=== PATIENT | female | born 1990 | race Caucasian/White ===

== ENCOUNTER → 2016-06-01 | Outpatient (CLI) | payer OTHER ==
[~2016-06-01] MED LIST: MISCCAP80 PO; MULT-506 PO; OXYC-57 PO; PRENTAB26 PO
[2016-06-01 11:11] LABS: URINE APPEARANCE CLOUDY (CLEAR); URINE BILIRUBIN NEG (NEG); URINE COLOR YELLOW; URINE EPITHELIAL CELL AUTO >30 /lpf (0-5); URINE NITRITE NEG (NEG); URINE PH 8.5 (4.5-7.5); URINE SPECIFIC GRAVITY 1.013 (1.000-1.030); UROBILINOGEN NEG (NEG)
[2016-06-01 11:17] LABS: MANUAL MICROSCOPIC REQUIRED? NO; REVIEW REQ? NO
== END | disposition home or self-care (01) ==
LOC: C.LABSPEC 10:51 → MERGE 10:51
PROVIDERS: ATTEND Obstetrics & Gynecology
DX: O09.299 Supervision of pregnancy with other poor reproductive or obstetric history, unspecified trimester (principal); Z3A.00 Weeks of gestation of pregnancy not specified

== ENCOUNTER → 2016-06-03 | Outpatient (CLI) | payer OTHER ==
[2016-06-03 14:41] LABS: BASO % 0.4 %; BASO ABS # 0.04 K/uL (0-0.2); COMPLETE YES; EOS % 0.5 %; HEMATOCRIT 37.8 % (37-47); IG% 0.3 %; LYMPH % 24.6 %; LYMPH ABS # 2.37 K/uL (1.2-3.4); MEAN CELL VOLUME 87.1 fL (80-100); MEAN CORPUSCULAR HEMOGLOBIN 30.2 pg (25-34); MEAN CORPUSCULAR HGB CONC 34.7 g/dl (32-36); MEAN PLATELET VOLUME 10.7 fL (7.4-10.4); MONO % 5.1 %; NEUT % 69.1 %; PLATELET COUNT 229 K/uL (130-400); RED BLOOD COUNT 4.34 M/uL (4.2-5.4); WHITE BLOOD COUNT 9.65 K/uL (4.8-10.8)
[2016-06-06 01:55] LABS: CHLAMYDIA TRACH RNA*** NOT DETECTED (NOT DETECTED); GC (NEIS GONORRHOEAE)RNA** NOT DETECTED (NOT DETECTED)
== END | disposition home or self-care (01) ==
LOC: MERGE 12:41 → C.LAB1850 12:41
PROVIDERS: ATTEND Obstetrics & Gynecology
DX: O09.291 Supervision of pregnancy with other poor reproductive or obstetric history, first trimester (principal)

== ENCOUNTER → 2016-07-29 | Outpatient (CLI) | payer OTHER ==
[2016-07-29 14:08] LABS: GTGD 50 Grams
== END | disposition home or self-care (01) ==
LOC: MERGE 10:40 → C.LAB1850 10:40
PROVIDERS: ATTEND Obstetrics & Gynecology
DX: O09.292 Supervision of pregnancy with other poor reproductive or obstetric history, second trimester (principal)

== ENCOUNTER → 2016-10-19 | Outpatient (CLI) | payer OTHER ==
[2016-10-19 12:29] LABS: HEMATOCRIT 35.9 % (37-47)
[2016-10-19 13:37] LABS: GTGD 50 Grams
== END | disposition home or self-care (01) ==
LOC: C.LAB1850 10:26
PROVIDERS: ATTEND Obstetrics & Gynecology
DX: O09.293 Supervision of pregnancy with other poor reproductive or obstetric history, third trimester (principal); Z3A.00 Weeks of gestation of pregnancy not specified

== ENCOUNTER → 2016-10-19 | Outpatient (CLI) | payer OTHER ==
[2016-10-19 14:26] LABS: URINE APPEARANCE CLEAR (CLEAR); URINE BILIRUBIN NEG (NEG); URINE COLOR YELLOW; URINE EPITHELIAL CELL AUTO >30 /lpf (0-5); URINE NITRITE NEG (NEG); URINE SPECIFIC GRAVITY 1.006 (1.000-1.030); UROBILINOGEN NEG (NEG)
[2016-10-19 14:29] LABS: MANUAL MICROSCOPIC REQUIRED? NO; REVIEW REQ? NO
== END | disposition home or self-care (01) ==
LOC: C.LABSPEC 13:22
PROVIDERS: ATTEND Obstetrics & Gynecology
DX: O09.293 Supervision of pregnancy with other poor reproductive or obstetric history, third trimester (principal); Z3A.00 Weeks of gestation of pregnancy not specified

== ENCOUNTER 2016-12-24 13:10 | Inpatient (IN) | payer OTHER ==
[~2016-12-24] VITALS: Ht 157.5 cm; Wt 75.5 kg
[~2016-12-24 13:10] MED LIST changes: -OXYC-57 PO
[2016-12-24 13:31] VITALS: Ht 157.5 cm; Wt 75.5 kg
[2016-12-24 14:22] LABS: BASO % 0.3 %; BASO ABS # 0.03 K/uL (0-0.2); EOS % 0.8 %; HEMATOCRIT 36.6 % (37-47); IG% 0.3 %; LYMPH % 24.9 %; LYMPH ABS # 2.93 K/uL (1.2-3.4); MEAN PLATELET VOLUME 11.5 fL (7.4-10.4); MONO % 5.5 %; NEUT % 68.2 %; PLATELET COUNT 187 K/uL (130-400); RED BLOOD COUNT 4.16 M/uL (4.2-5.4); WHITE BLOOD COUNT 11.78 K/uL (4.8-10.8)
[2016-12-24 14:23] LABS: URINE APPEARANCE CLEAR (CLEAR); URINE BILIRUBIN NEG (NEG); URINE COLOR YELLOW; URINE EPITHELIAL CELL AUTO >30 /lpf (0-5); URINE NITRITE NEG (NEG); URINE SPECIFIC GRAVITY 1.004 (1.000-1.030); UROBILINOGEN NEG (NEG)
[2016-12-24 14:24] LABS: MANUAL MICROSCOPIC REQUIRED? NO; REVIEW REQ? NO; SULFASALICYLIC ACID POS (NEG)
[2016-12-24 14:28] LABS: INR 0.9 (0.9-1.1); PROTHROMBIN TIME (PATIENT) 9.9 SECONDS (9.0-12.0)
[2016-12-24 14:43] LABS: ALKALINE PHOSPHATASE 99 U/L (45-117); ALT/SGPT 17 U/L (12-78); AST/SGOT 16 U/L (15-37); CREATININE 0.82 mg/dl (0.60-1.20); URIC ACID 6.3 mg/dl (2.6-7.2)
[2016-12-24 14:54] LABS: COMPLETE YES; MEAN CORPUSCULAR HGB CONC 35.2 g/dl (32-36)
[2016-12-24] MEDS ORDERED: LACTATED RINGER'S 1000ML 500 ML IV PRN ×2 (15:20→18:44)
[2016-12-24] MEDS ORDERED: LACTATED RINGER'S 1000ML 1,000 ML IV PRN (15:20)
[2016-12-24] MEDS: ACETAMINOPHEN 500 MG TAB PO PRN (15:39)
[2016-12-24] MEDS ORDERED: MAGNESIUM SULFATE 4GM / WTR 100ML IV ONE (15:45)
[2016-12-24] MEDS ORDERED: MAGNESIUM SULFATE / WTR 1,000 ML IV ONE (16:00)
[2016-12-24] MEDS ORDERED: LACTATED RINGER'S 1000ML 1,000 ML IV SCH ×2 (16:00→17:02)
[2016-12-24 16:13] LABS: CREATININE, URINE < 13.0 mg/dl; URINE TOTAL PROTEIN 36.6 mg/dl (0-11.9)
[2016-12-24] MEDS ORDERED: CITRIC ACID/SODIUM CITRATE 15 ML UDC ONE (17:06)
[2016-12-24] MEDS ORDERED: CITRIC ACID/SODIUM CITRATE 15 ML UDC PO ONE (17:15)
[2016-12-24] MEDS ORDERED: MoRPHine SULFATE PF 1 MG/ML 10 ML AMP/VIAL ONE (17:30)
[2016-12-24] MEDS ORDERED: CEFAZOLIN IV 2,000 MG in DEXTROSE 5% 50ML 50 ML IV ONE (17:30)
[2016-12-24] MEDS ORDERED: OXYTOCIN INJ 10 UNITS/ML VIAL ONE (18:10)
[2016-12-24] MEDS ORDERED: EpHEDrine SULFATE 50MG/5ML SYR ONE (18:11)
[2016-12-24] MEDS ORDERED: PHENYLEPHRINE 100MCG/ML 5ML SYR ONE (18:11)
--- NOTE | 2016-12-24 18:23 | Medical Student: [facility] ---
Immediate Operative Summary Operative Date Dec 24, 2016. Pre-Operative Diagnosis placental abruption Post-Operative Diagnosis same Procedure(s) Performed primary low transverse section Surgeon Dr. Genaro Calvin Business Strategist Surgeon(s) Dr. Norma Huggins, Dr. Jian Colmenares Estimated Blood Loss 800cc Findings viable male infant was born at 1756 with scores of 7 and 9. Normal appearing uterus, fallopian tubes, and ovaries Specimens placenta cord blood Anesthesia spinal Complication(s) None Disposition L&D
[2016-12-24] MEDS ORDERED: OXYTOCIN INJ 20 UNITS in LACTATED RINGER'S 1000ML 1,000 ML IV SCH (18:24)
[2016-12-24] MEDS ORDERED: LANOLIN OINT EXT PRN ×2 (18:30)
[2016-12-24] MEDS ORDERED: DIPHTHERIA/TETANUS/PERTUSSIS 0.5 ML SYR/VIAL IM. ONE (18:30)
[2016-12-24] MEDS ORDERED: HYDROCORTISONE ACETATE 25 MG SUPP PR PRN (18:30)
[2016-12-24] MEDS ORDERED: DiphenhydrAMINE HCL 50 MG/ML VIAL IV PRN ×3 (18:30→18:45)
[2016-12-24] MEDS ORDERED: MAGNESIUM SULFATE / WTR 1,000 ML IV SCH (18:30)
[2016-12-24] MEDS ORDERED: ONDANSETRON INJ 2 MG/ML 2 ML VIAL IV PRN ×3 (18:30→18:45)
[2016-12-24] MEDS ORDERED: OXYCODONE/ACETAMINOPHEN 5-325 TAB PO PRN ×2 (18:30)
[2016-12-24] MEDS ORDERED: KETOROLAC TROMETHAMINE 30 MG/ML VIAL IV. PRN ×2 (18:30→18:45)
[2016-12-24] MEDS ORDERED: SUPERCREAM 0.870 % 15GM JAR EXT PRN (18:30)
[2016-12-24] MEDS ORDERED: BENZOCAINE 20% AER SPR 82.5 GM CAN EXT PRN (18:30)
--- NOTE | 2016-12-24 18:35 | [facility] Post Operative Brief Note ---
Immediate Operative Summary Operative Date Dec 24, 2016. Pre-Operative Diagnosis 1) Severe Preeclampsia; 2) Placental Abruption Post-Operative Diagnosis Same Procedure(s) Performed Primary Low Transverse Caesarean Section; Delivery of a live female child at [address] Calvin Switchboard Operator Receptionist Surgeon(s) Dr Huggins Estimated Blood Loss 800 cc Findings viable female , Apgars 7/9; clear fluid, small clot on placenta, gasses pending, nml appearing tubes and ovaries Fluids (cc crystalloids) 1000 Specimens placenta-exam cord blood arterial and venous gases Drains Campos to gravity Anesthesia Spinal Complication(s) None Disposition L&D
[2016-12-24] MEDS ORDERED: NALOXONE HCL INJ 1 MG in SODIUM CHLORIDE 0.9% 1000ML 1,000 ML IV PRN (18:44)
[2016-12-24] MEDS ORDERED: SODIUM CHLORIDE 0.9% 1000ML 1,000 ML IV PRN (18:44)
[2016-12-24] MEDS ORDERED: NALOXONE HCL INJ 0.08 MG in SYRINGE 1.8 ML IV PRN (18:44)
[2016-12-24] MEDS ORDERED: NO NARCOTICS OR SEDATIVES SCH (18:45)
[2016-12-24] MEDS ORDERED: EpHEDrine SULFATE INJ 50 MG/ML AMP IV PRN ×2 (18:45)
[2016-12-24] MEDS ORDERED: MEPERIDINE HCL 25 MG/ML CARP IV PRN ×2 (18:45)
[2016-12-24] MEDS ORDERED: NALBUPHINE HCL INJ 10 MG/ML AMP IV PRN (18:45)
[2016-12-24] MEDS ORDERED: ATROPINE SULFATE 0.1 MG/ML 5ML SYR IV PRN (18:45)
[2016-12-24] MEDS ORDERED: LABETALOL HCL IV 5 MG/ML 20ML IV PRN (18:45)
[2016-12-24] MEDS ORDERED: MoRPHine SULFATE 2 MG/ML CARP IV PRN (18:45)
[2016-12-24] MEDS ORDERED: HYDROmorphone INJ 1 MG/ML SYR IV PRN (18:45)
[2016-12-24] MEDS ORDERED: MoRPHine SULFATE PF 1 MG/ML 10 ML AMP/VIAL EPI PRN (18:45)
[2016-12-24] MEDS ORDERED: FENTANYL CITRATE INJ 50 MCG/1 ML 2 ML VIAL IV PRN (18:45)
[2016-12-24] MEDS ORDERED: NALOXONE HCL 0.4 MG/1 ML VIAL/CARP IV PRN (18:45)
[2016-12-24] MEDS ORDERED: OXYTOCIN 30 UNITS/500ML NSS IV PRN (19:00)
[2016-12-24] MEDS ORDERED: CARBOPROST TROMETHAMINE 250 MCG/ML AMP ONE (19:08)
--- NOTE | 2016-12-24 19:26 | Anesthesiology Progress Note ---
Anesthesia Post Op Note Date & Time Dec 24, 2016 at 19:26 Vital Signs Pain Intensity: 9.0 Notes Mental Status: alert / awake / arousable, participated in evaluation Pt Amnestic to Procedure: Yes Nausea / Vomiting: adequately controlled Pain: adequately controlled Airway Patency, RR, SpO2: stable & adequate BP & HR: stable & adequate Hydration State: stable & adequate Neuraxial Anesthesia: was administered, sensory block is resolving Anesthetic Complications: no major complications apparent
--- NOTE | 2016-12-24 19:43 | Medical Student: [facility] ---
Med Student History & Physical Date of Service Dec 24, 2016. Chief Complaint High Blood Pressure Evaluation History of Present Illness Source: patient Pt is a 26 yo F with BELA of 01/07/2017 by LMP, 38 weeks of GA, presents for elevated blood pressure evaluation. Pt was in the office earlier for regular pre-millie checkup and recorded a BP of 160/100 and 140/90. Trace protein was found in urine. Pt. had also been complaining of headaches that began around 4am which woke her up and was worst when she was in the office for the check-up. Prior to today, there has not been elevated BP during the . course has been followed by Cielo Swartz and uncomplicated. Was feeling regular contractions on arrival and the headaches get worse with the contractions. Denies loss of fluid or vaginal bleeding. Reports good movements. 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 Smoking Status: Never Smoker Alcohol Use: none Drug Use: none Marital Status: Occupational Status: employed Allergies Coded Allergies: Gluten (Unverified Allergy, Unknown, GI ISSUES, 07/30/16) Home Medications Multivit/Min/Iron/Fol Ac/Pren ( Vitamin), 1 TAB PO DAILY Multivitamin (Multivitamin), 1 TAB PO DAILY Probiotic Product (Probiotic), 1 CAP PO DAILY Review of Systems Constitutional: No fever Respiratory: No cough, No shortness of breath Cardiovascular: No chest pain Abdomen: + pain (lower abdomen feels a little painful, reports as pressure from fetus pushing down ) Musculoskeletal: No calf pain Physical Exam General Appearance: WD/WN, + moderate distress Respiratory/Chest: chest non-tender, lungs clear Cardiovascular: + bradycardia (46), + systolic murmur (tricuspid regurgitation) Abdomen / GI: soft Extremities: normal inspection, no calf tenderness, + pedal edema Skin: normal color, warm/dry Monitoring External Monitor: baseline HR 145, moderate variability, category 1 tracing Laboratory Results 12/24/16 14:03 Red Blood Count 4.16, Mean Corpuscular Volume 88.0, Mean Corpuscular Hemoglobin 31.0, Mean Corpuscular Hemoglobin Concent 35.2, Mean Platelet Volume 11.5, Neutrophils (%) (Auto) 68.2, Lymphocytes (%) (Auto) 24.9, Monocytes (%) (Auto) 5.5, Eosinophils (%) (Auto) 0.8, Basophils (%) (Auto) 0.3, Neutrophils # (Auto) 8.05, Lymphocytes # (Auto) 2.93, Monocytes # (Auto) 0.65, Eosinophils # (Auto) 0.09, Basophils # (Auto) 0.03 12/24/16 14:03 Test 12/24/16 14:03 12/24/16 14:07 White Blood Count 11.78 K/uL (4.8-10.8) Red Blood Count 4.16 M/uL (4.2-5.4) Hemoglobin 12.9 g/dL (12.0-16.0) Hematocrit 36.6 % (37-47) Mean Corpuscular Volume 88.0 fL (80-100) Mean Corpuscular Hemoglobin 31.0 pg (25-34) Mean Corpuscular Hemoglobin Concent 35.2 g/dl (32-36) Platelet Count 187 K/uL (130-400) Mean Platelet Volume 11.5 fL (7.4-10.4) Neutrophils (%) (Auto) 68.2 % Lymphocytes (%) (Auto) 24.9 % Monocytes (%) (Auto) 5.5 % Eosinophils (%) (Auto) 0.8 % Basophils (%) (Auto) 0.3 % Neutrophils # (Auto) 8.05 K/uL (1.4-6.5) Lymphocytes # (Auto) 2.93 K/uL (1.2-3.4) Monocytes # (Auto) 0.65 K/uL (0.11-0.59) Eosinophils # (Auto) 0.09 K/uL (0-0.5) Basophils # (Auto) 0.03 K/uL (0-0.2) RDW Standard Deviation 40.3 fL (36.4-46.3) RDW Coefficient of Variation 12.5 % (11.5-14.5) Immature Granulocyte % (Auto) 0.3 % Immature Granulocyte # (Auto) 0.03 K/uL (0.00-0.02) Prothrombin Time 9.9 SECONDS (9.0-12.0) Prothromb Time International Ratio 0.9 (0.9-1.1) Activated Partial Thromboplast Time 26.8 SECONDS (21.0-31.0) Partial Thromboplastin Ratio 1.0 Est Creatinine Clear Calc Drug Dose 98.9 ml/min Estimated GFR () 114.5 Estimated GFR (Non- 98.8 Uric Acid 6.3 mg/dl (2.6-7.2) Total Bilirubin 0.2 mg/dl (0.2-1) Direct Bilirubin < 0.1 mg/dl (0-0.2) Aspartate Amino Transf (AST/SGOT) 16 U/L (15-37) Alanine Aminotransferase (ALT/SGPT) 17 U/L (12-78) Alkaline Phosphatase 99 U/L (45-117) Total Protein 6.3 gm/dl (6.4-8.2) Albumin 2.6 gm/dl (3.4-5.0) Urine Color YELLOW Urine Appearance CLEAR (CLEAR) Urine pH 8.0 (4.5-7.5) Urine Specific [place] 1.004 (1.000-1.030) Urine Protein 1+ (NEG) Urine Glucose (UA) NEG (NEG) Urine Ketones NEG (NEG) Urine Occult Blood NEG (NEG) Urine Nitrite NEG (NEG) Urine Bilirubin NEG (NEG) Urine Urobilinogen NEG (NEG) Urine Leukocyte Esterase TRACE (NEG) Urine WBC (Auto) 1-5 /hpf (0-5) Urine RBC (Auto) 0-4 /hpf (0-4) Urine Hyaline Casts (Auto) 0 /lpf (0-5) Urine Epithelial Cells (Auto) >30 /lpf (0-5) Urine Bacteria (Auto) NEG (NEG) Assessment and Plan Pt is a 26 yo F at 38 weeks GA with elevated blood pressure. tracing category 1. - Admit to L & D - NPO except ice chips and clear liquid - Monitor mother and fetus - Administer magnesium sulfate - Induce labor with varghese catheter (proceeded with emergent section due to placental abruption)
[2016-12-25 06:05] LABS: HEMATOCRIT 29.1 % (37-47); MEAN CELL VOLUME 88.2 fL (80-100); MEAN CORPUSCULAR HEMOGLOBIN 30.3 pg (25-34); MEAN CORPUSCULAR HGB CONC 34.4 g/dl (32-36); MEAN PLATELET VOLUME 10.4 fL (7.4-10.4); PLATELET COUNT 136 K/uL (130-400); WHITE BLOOD COUNT 11.81 K/uL (4.8-10.8)
--- NOTE | 2016-12-25 06:48 | OB/GYN Progress Note ---
SKID MACHINE OPERATOR Progress Note Date of Service Dec 25, 2016. Subjective conversation w/ patient, conversation w/ family, physical exam, chart review, lab review Ambulation: limited ambulation (remained in bed overnight) Voiding: varghese catheter in place Passing Gas: No Diet Tolerance: Clear Liquids Lochia: Small (says a couple of small clots overnight) Feeding Type: Breast Feeding Pain: Denies, says "I'm feeling good" Review of Systems Constitutional: No fever, No chills Respiratory: No cough, No shortness of breath Cardiac: No chest pain Abdomen: No nausea, No vomiting, No diarrhea Objective Physical Exam General Appearance: WELL-APPEARING, WD/WN, NO APPARENT DISTRESS Respiratory/Chest: lungs clear, normal breath sounds Cardiovascular: regular rate, rhythm Abdomen: normal bowel sounds, non tender, soft Fundus: Firm, Tender (minimal, appropriate), Relation to Umbilicus (at umbilicus) Incision Description: Clean, Dry & Intact (bandage in place) Extremities: normal range of motion, non-tender, no pedal edema, no calf tenderness Laboratory Results Last 24 Hours Test 12/24/16 14:03 12/24/16 14:07 12/24/16 23:19 12/25/16 05:28 White Blood Count 11.78 K/uL 11.81 K/uL Red Blood Count 4.16 M/uL 3.30 M/uL Hemoglobin 12.9 g/dL 10.0 g/dL Hematocrit 36.6 % 29.1 % Mean Corpuscular Volume 88.0 fL 88.2 fL Mean Corpuscular Hemoglobin 31.0 pg 30.3 pg Mean Corpuscular Hemoglobin Concent 35.2 g/dl 34.4 g/dl Platelet Count 187 K/uL 136 K/uL Mean Platelet Volume 11.5 fL 10.4 fL Neutrophils (%) (Auto) 68.2 % Lymphocytes (%) (Auto) 24.9 % Monocytes (%) (Auto) 5.5 % Eosinophils (%) (Auto) 0.8 % Basophils (%) (Auto) 0.3 % Neutrophils # (Auto) 8.05 K/uL Lymphocytes # (Auto) 2.93 K/uL Monocytes # (Auto) 0.65 K/uL Eosinophils # (Auto) 0.09 K/uL Basophils # (Auto) 0.03 K/uL RDW Standard Deviation 40.3 fL 39.8 fL RDW Coefficient of Variation 12.5 % 12.4 % Immature Granulocyte % (Auto) 0.3 % Immature Granulocyte # (Auto) 0.03 K/uL Prothrombin Time 9.9 SECONDS Prothromb Time International Ratio 0.9 Activated Partial Thromboplast Time 26.8 SECONDS Partial Thromboplastin Ratio 1.0 Creatinine 0.82 mg/dl Est Creatinine Clear Calc Drug Dose 98.9 ml/min Estimated GFR () 114.5 Estimated GFR (Non- 98.8 Uric Acid 6.3 mg/dl Total Bilirubin 0.2 mg/dl Direct Bilirubin < 0.1 mg/dl Aspartate Amino Transf (AST/SGOT) 16 U/L Alanine Aminotransferase (ALT/SGPT) 17 U/L Alkaline Phosphatase 99 U/L Total Protein 6.3 gm/dl Albumin 2.6 gm/dl Urine Color YELLOW Urine Appearance CLEAR Urine pH 8.0 Urine Specific [place] 1.004 Urine Protein 1+ Urine Glucose (UA) NEG Urine Ketones NEG Urine Occult Blood NEG Urine Nitrite NEG Urine Bilirubin NEG Urine Urobilinogen NEG Urine Leukocyte Esterase TRACE Urine WBC (Auto) 1-5 /hpf Urine RBC (Auto) 0-4 /hpf Urine Hyaline Casts (Auto) 0 /lpf Urine Epithelial Cells (Auto) >30 /lpf Urine Bacteria (Auto) NEG Urine Random Creatinine < 13.0 mg/dl Urine Random Total Protein 36.6 mg/dl Urine Protein/Creatinine Ratio Magnesium Level 6.1 mg/dl 7.0 mg/dl Assessment and Plan Post-Op Day Number: 1 Continue Routine Care: 26yo s/p emergent for severe pre-eclampsia and placental abruption, now PPD #1. - Blood type O positive. GBS positive. Rubella immune. Received ancef preop. - Vital signs reviewed and stable. Not hypertensive overnight. - S/p spinal anesthesia. Pain controlled with toradol as well. - No leg swelling or tenderness on calf palpation. Encourage ambulation. - Encourage breast feeding. - Hemoglobin pre-delivery 12.9, post-delivery 10.0. Bleeding has improved. Continue to monitor clinically. - Continue post delivery care. - Pt agreed with above plan, all current questions answered. Jian Colmenares MD, PGY1 Road Boss Physician Supervision Note: I interviewed and examined the patient. Discussed with Dr. Robin and agree with findings and plan as documented in the note. Any exceptions or clarifications are listed here: BP's have normalized, no headaches. Feel Mg can b d/c'd after 12 hours and transfer to floor Documented By: Genaro Calvin Resident Tracking Resident Involvement: Resident Care Provided Care Provided: OB Delivery (morning rounds)
--- NOTE | 2016-12-25 06:57 | Medical Student: [facility] ---
Med Student TUTORING MANAGER Progress Nt Date of Service Dec 25, 2016. Subjective conversation w/ patient, conversation w/ family, physical exam, chart review, lab review Ambulation: limited ambulation (has yet yo get out of bed since ) Voiding: varghese catheter in place Passing Gas: No Diet Tolerance: Clear Liquids Lochia: Small Feeding Type: Breast Feeding Review of Systems Constitutional: No fever Respiratory: No cough, No shortness of breath Cardiac: No chest pain Abdomen: No nausea, No vomiting Objective Physical Exam General Appearance: WELL-APPEARING, WD/WN, NO APPARENT DISTRESS Respiratory/Chest: chest non-tender, lungs clear Cardiovascular: regular rate, rhythm Abdomen: non tender, soft Incision Description: Clean, Dry & Intact Extremities: + pedal edema (bilateral, has compression device on) Laboratory Results Last 24 Hours Test 12/24/16 14:03 12/24/16 14:07 12/24/16 23:19 12/25/16 05:28 White Blood Count 11.78 K/uL 11.81 K/uL Red Blood Count 4.16 M/uL 3.30 M/uL Hemoglobin 12.9 g/dL 10.0 g/dL Hematocrit 36.6 % 29.1 % Mean Corpuscular Volume 88.0 fL 88.2 fL Mean Corpuscular Hemoglobin 31.0 pg 30.3 pg Mean Corpuscular Hemoglobin Concent 35.2 g/dl 34.4 g/dl Platelet Count 187 K/uL 136 K/uL Mean Platelet Volume 11.5 fL 10.4 fL Neutrophils (%) (Auto) 68.2 % Lymphocytes (%) (Auto) 24.9 % Monocytes (%) (Auto) 5.5 % Eosinophils (%) (Auto) 0.8 % Basophils (%) (Auto) 0.3 % Neutrophils # (Auto) 8.05 K/uL Lymphocytes # (Auto) 2.93 K/uL Monocytes # (Auto) 0.65 K/uL Eosinophils # (Auto) 0.09 K/uL Basophils # (Auto) 0.03 K/uL RDW Standard Deviation 40.3 fL 39.8 fL RDW Coefficient of Variation 12.5 % 12.4 % Immature Granulocyte % (Auto) 0.3 % Immature Granulocyte # (Auto) 0.03 K/uL Prothrombin Time 9.9 SECONDS Prothromb Time International Ratio 0.9 Activated Partial Thromboplast Time 26.8 SECONDS Partial Thromboplastin Ratio 1.0 Creatinine 0.82 mg/dl Est Creatinine Clear Calc Drug Dose 98.9 ml/min Estimated GFR () 114.5 Estimated GFR (Non- 98.8 Uric Acid 6.3 mg/dl Total Bilirubin 0.2 mg/dl Direct Bilirubin < 0.1 mg/dl Aspartate Amino Transf (AST/SGOT) 16 U/L Alanine Aminotransferase (ALT/SGPT) 17 U/L Alkaline Phosphatase 99 U/L Total Protein 6.3 gm/dl Albumin 2.6 gm/dl Urine Color YELLOW Urine Appearance CLEAR Urine pH 8.0 Urine Specific [place] 1.004 Urine Protein 1+ Urine Glucose (UA) NEG Urine Ketones NEG Urine Occult Blood NEG Urine Nitrite NEG Urine Bilirubin NEG Urine Urobilinogen NEG Urine Leukocyte Esterase TRACE Urine WBC (Auto) 1-5 /hpf Urine RBC (Auto) 0-4 /hpf Urine Hyaline Casts (Auto) 0 /lpf Urine Epithelial Cells (Auto) >30 /lpf Urine Bacteria (Auto) NEG Urine Random Creatinine < 13.0 mg/dl Urine Random Total Protein 36.6 mg/dl Urine Protein/Creatinine Ratio Magnesium Level 6.1 mg/dl 7.0 mg/dl Assessment and Plan Post-Op Day Number: 1 Continue Routine Care: Pt is a 26 yo F POP#1 s/p - Blood type O positive, rubella immune, GBS positive - vitals stable - encourage ambulation and - Pre-delivery Hgb 12.9 post-delivery Hgb 10.0. Will continue to monitor - Pain controlled with Toradol - continue routine post care
--- NOTE | 2016-12-25 07:09 | OPERATIVE REPORT ---
DATE OF OPERATION: 12/24/2016 PREOPERATIVE DIAGNOSES: 1. Complicated at 38 weeks gestational age. 2. Severe preeclampsia. 3. Placental abruption. POSTOPERATIVE DIAGNOSES: Same. PROCEDURE PERFORMED: Primary low cervical transverse section. SURGEON: Dr. Calvin. FUNERAL GREETER: Dr. Norma Huggins and Dr. Jian Mercado. ANESTHESIA: Spinal. FINDINGS: A viable female with Apgars of 7 and 9 and a weight of 5 pounds 11 ounces. Arterial and venous cord gases were pending. Clear amniotic fluid, a small clot noted on placenta, consistent with abruption. Normal appearing tubes and ovaries bilaterally. PROCEDURE IN DETAIL: The patient was taken to the operating room and after spinal anesthesia, was placed in supine position and draped and prepped in the usual fashion. A Pfannenstiel type incision was made. Underlying subcutaneous tissue was dissected down to the ventral abdominal fascia, which was nicked and opened in a horizontal manner. Preperitoneal fascia was dissected away until the peritoneal cavity was entered and opened in a vertical manner. Bladder blade was placed and the uterus was entered sharply and extended in a semilunar fashion manually. A viable female infant was delivered. Cord was clamped and cut and the baby was passed off to pediatrics, who was in attendance for the delivery. Cord gases and cord blood samples were obtained. Placenta was delivered spontaneously with description as above and sent for pathological evaluation. The uterine cavity was exteriorized and wiped clean of any residual blood tissue and/or clot. Hemabate 250 mcg was injected directly into the myometrium. Normal appearing tubes and ovaries bilaterally. The uterine incision was then closed with 2 layers of 4-0 Vicryl, the first a running locking stitch, the second an imbricating stitch. Hemostasis was achieved and the uterus was returned to the pelvic cavity. Pericolic gutters were cleared bilaterally of any blood tissue and/or clot. Sponge and needle count was correct. The rectus muscles were plicated in the midline with a running 2-0 Vicryl suture. The fascia was closed laterally with a running 0 Vicryl stitch. Subcutaneous tissue was irrigated with warm saline and the skin incision was closed with a 4-0 Monocryl subcuticular suture. Sterile dressing was applied and the patient was taken to the recovery room in a satisfactory condition. I attest to the content of the Intraoperative Record and any orders documented therein. Any exception s are noted below.
[2016-12-25] MEDS: PRENATAL VITAMIN TAB PO SCH (08:00)
[2016-12-25] MEDS: FERROUS SULFATE 325 MG TAB PO SCH (08:00)
[2016-12-25 11:23] VITALS: BP 137/90; PULSE 60; TEMP 36.5
[2016-12-25] MEDS ORDERED: ONDANSETRON INJ 2 MG/ML 2 ML VIAL IV PRN (11:30)
[2016-12-25] MEDS ORDERED: KETOROLAC TROMETHAMINE 30 MG/ML VIAL IV. PRN (11:30)
[2016-12-25] MEDS ORDERED: DiphenhydrAMINE HCL 50 MG/ML VIAL IV PRN (11:30)
[2016-12-25] MEDS ORDERED: DC INTRASPINAL MORPHINE ONE (11:30)
[2016-12-25] MEDS ORDERED: OXYCODONE/ACETAMINOPHEN 5-325 TAB PO PRN ×2 (11:30)
[2016-12-25] MEDS: IBUPROFEN 600 MG TAB PO PRN (14:28)
[2016-12-25 16:02] VITALS: BP 137/82; PULSE 51; TEMP 36.6
[2016-12-25] MEDS: ACETAMINOPHEN 500 MG TAB PO PRN ×2 (18:13→23:51)
[2016-12-25 20:10] VITALS: BP 128/81; PULSE 60; TEMP 36.6; O2SAT 100
[2016-12-25] MEDS ORDERED: MAGNESIUM HYDROXIDE SUSP 30 ML UDC PO SCH (21:00)
[2016-12-25] MEDS ORDERED: SENNA 8.6 MG TAB PO SCH (21:00)
[2016-12-25 23:50] VITALS: BP 117/74; PULSE 74; TEMP 36.6; O2SAT 98
[2016-12-26] MEDS: IBUPROFEN 600 MG TAB PO PRN ×2 (01:53→12:00)
[2016-12-26 05:23] LABS: HEMATOCRIT 27.2 % (37-47); MEAN CELL VOLUME 89.8 fL (80-100); MEAN CORPUSCULAR HEMOGLOBIN 30.4 pg (25-34); PLATELET COUNT 148 K/uL (130-400); RED BLOOD COUNT 3.03 M/uL (4.2-5.4); WHITE BLOOD COUNT 10.31 K/uL (4.8-10.8)
[2016-12-26 05:37] LABS: MEAN CORPUSCULAR HGB CONC 33.8 g/dl (32-36)
[2016-12-26] MEDS: ACETAMINOPHEN 500 MG TAB PO PRN (06:44)
--- NOTE | 2016-12-26 07:02 | OB/GYN Progress Note ---
BENDER HELPER Progress Note Date of Service Dec 26, 2016. Subjective conversation w/ patient, physical exam, chart review, lab review Ambulation: ambulating normally Voiding: no voiding problems Passing Gas: Yes Diet Tolerance: Regular Diet Lochia: Small Feeding Type: Breast Feeding Pain: Says some cramping with breast feeding Notes: Pt says she thinks her distal right leg feels a little more swollen than left, ongoing since pre-. Denies difficulty with leg movement, numbness, weakness, pain. Review of Systems Constitutional: No fever, No chills Respiratory: No cough, No shortness of breath Cardiac: No chest pain Abdomen: No nausea, No vomiting, No diarrhea Female : No dysuria Objective Vital Signs Date Time Temp Pulse Resp B/P (MAP) Pulse Ox O2 Delivery O2 Flow Rate FiO2 12/25/16 23:50 36.6 74 16 117/74 (88) 98 Room Air 12/25/16 23:50 98 Room Air 12/25/16 20:10 Room Air 12/25/16 20:10 36.6 60 16 128/81 (97) 100 Room Air 12/25/16 16:15 Room Air 12/25/16 16:02 36.6 51 16 137/82 (100) Room Air 12/25/16 11:30 Room Air 12/25/16 11:23 36.5 60 16 137/90 Physical Exam General Appearance: WELL-APPEARING, WD/WN, NO APPARENT DISTRESS Respiratory/Chest: lungs clear, normal breath sounds Cardiovascular: regular rate, rhythm, no edema, no gallop Abdomen: normal bowel sounds, non tender, soft Fundus: Firm, Non-Tender, Relation to Umbilicus (approx one down) Incision Description: Clean, Dry & Intact (dressing in place) Extremities: normal range of motion, non-tender, no pedal edema (questionable right ankle minimal edema. full/easy leg ROM, distal sensation grossly intact) , no calf tenderness Laboratory Results Last 24 Hours Test 12/26/16 05:12 White Blood Count 10.31 K/uL Red Blood Count 3.03 M/uL Hemoglobin 9.2 g/dL Hematocrit 27.2 % Mean Corpuscular Volume 89.8 fL Mean Corpuscular Hemoglobin 30.4 pg Mean Corpuscular Hemoglobin Concent 33.8 g/dl RDW Standard Deviation 41.0 fL RDW Coefficient of Variation 12.7 % Platelet Count 148 K/uL Mean Platelet Volume 10.0 fL Assessment and Plan Post-Op Day Number: 2 Continue Routine Care: 26yo s/p emergent for severe pre-eclampsia and placental abruption, now PPD #2. - Blood type O positive. GBS positive. Rubella immune. - Vital signs reviewed and stable. - Pain controlled with Tylenol and ibuprofen. - Questionable right leg edema (subj > obj) but no tenderness on calf palpation or movement. Encourage ambulation, discussed DVT risks with pt. - Encourage breast feeding. - Hemoglobin pre-delivery 12.9, post-delivery 10.0 then 9.2. No reports of increased vaginal bleeding. Pt not dizzy. Continue to monitor clinically. - Continue post delivery care. - Pt agreed with above plan, all current questions answered. Jian Colmenares MD, PGY1 Chemical Instrumentation Officer Physician Supervision Note: I was present with Dr. Colmenares during the history and exam. I discussed the case with the resident and agree with the findings and plan as documented in the note. Any exceptions or clarifications are listed here: POD#2 doing well. Is considering going home this afternoon. Discussed discharge instructions. Documented By: Norma Huggins Resident Tracking Resident Involvement: Resident Care Provided Care Provided: OB Delivery (morning rounds)
--- NOTE | 2016-12-26 07:46 | Discharge Instructions ---
Discharge Instructions Date of Service Dec 26, 2016. Admission Reason for Admission: High Blood Pressure Evaluation Discharge Discharge Diagnosis / Problem: Recovery after Discharge Goals Goal(s): Routine recovery after Medications Continue Dispensed Medications: supercream, dermaplast, tucks Activity Recommendations Activity Limitations: per Instructions/Follow-up section . Instructions / Follow-Up Instructions / Follow-Up ACTIVITY RECOMMENDATIONS: * Gradual return to full activity over the next 2-3 weeks. * No lifting - nothing heavier than baby over the next 2-3 weeks. * Do not engage in vigorous exercise, sexual activity or sports until cleared by your physician. * Do not drive or operate any motorized equipment until cleared by your physician. * You may shower/bathe daily. MEDICATIONS: For discomfort or pain, you may use Acetaminophen (Tylenol), Ibuprofen (Advil), or Naproxen (Aleve) following the package directions. For constipation you may use Colace following the package directions. BREAST CARE: If you are not breast feeding: * Wear a supportive bra 24 hours a day for one to two weeks. * Avoid stimulating your breasts and nipples as much as possible during the first few weeks after delivery. * When taking a shower, have the warm water hit your back, not breasts. * When your breasts feel full, apply ice packs. Usually three to four times a day helps ease the discomfort. * Take a mild pain medication (Tylenol / Motrin) when you are uncomfortable. If breast feeding: * Use breast milk to lubricate nipples. Lansinoh cream may be used for sore nipples. You do not need to remove cream prior to breast feeding. If using a different brand of cream, check the label for directions regarding removal of cream prior to nursing. * Wear a supportive bra. * If having problems with breasts or breast feeding, call a air quality consultant or your health care provider. SPECIAL CARE INSTRUCTIONS: When you are discharged from the hospital, it is important for you to follow the instructions listed below: * During the first week at home, you should be able to care for yourself and your baby. In addition, the usual light household activities are encouraged. * Limit your activities to the way you feel. Do not try to clean the house or move furniture. Be sensible. * If you actively engage in sports and have done so up until the time of your delivery, you may resume these activities as soon as you feel able. This may take up to one month or even longer. Use good judgment. * Continue to take your vitamins for at least six weeks after the of your baby. * Your diet need not be limited unless you were on a special diet before your delivery. Breast-feeding mothers need around 2500 calories per day and at least 64-80 ounces of fluid per day (8 to 10 glasses). * You should eat foods from the four major food groups. Crash diets or fad diets are to be avoided. Eating lean meats, fresh fruits and vegetables, low-fat dairy products, high fiber foods and a regular exercise program, will help you get back to your pre- weight without putting your health at risk. * Constipation is sometimes a problem after delivery. Take a mild laxative as needed. If breast feeding, Milk of Magnesia is acceptable to use. You may use a suppository or Fleets enema. * A daily shower or tub bath is suggested. Wash incision daily with warm soapy water and pat dry. It doesn't need to be covered unless drainage is present. * A bloody vaginal discharge will usually continue until around four weeks . A small amount of bleeding may continue for as long as six weeks. Vaginal discharge changes from the bright red bleeding after delivery to pink then brownish and finally yellowish-pink before becoming white and disappearing. * Bleeding may increase with activity. Your first period may come in 4-8 weeks. If you are breast feeding, your period may be delayed even longer. * [place] (sex) can begin whenever both you and your partner feel comfortable and do not have any form of genital infection. It is recommended that you wait at least six weeks for internal and external healing to occur. If you have questions, please talk to your health care practitioner. A condom should be used to prevent infection and . * Foreplay, gentle intercourse and lubrication is very important the first several times to prevent pain. A water-based lubricant such as K-Y jelly or Astroglide may be used. * If you have RH negative blood and your baby is RH positive, you will receive RHOGAM by injection prior to discharge. The nurse will give you a card to keep with you that has the date and place that you received RHOGAM after delivery. * During your care, you had a Rubella screen done to check for the presence of rubella antibodies in your blood. If your test was negative, you will receive a Rubella vaccine prior to discharge. This vaccine may cause a fever, soreness at the injection site and flu-like symptoms. If these symptoms persist, notify your health care practitioner. is not advised for one month after a Rubella vaccine. * Verbalizes understanding of car seat law as reviewed with patient nursing. * Car Seat hand-out given and reviewed with patient by nursing. * Shaken baby information reviewed with patient by nursing. Call you doctor if: * Heavy bleeding (saturating several pads an hour) or passing clots the size of your fist. * A fever >101 degrees F (38.3 degrees C) on two occasions four hours apart and /or chills. * Unusual pain in the pelvic or vaginal areas. * Call the doctor for any increased redness, drainage or swelling around the incision and any pain unrelieved by prescribed pain medication. * "Baby Blues" lasting longer than two weeks. If you have any questions or concerns, call your health care practitioner at . FOLLOW UP VISIT: * Please call the office at to schedule a 6 week examination. It is important you keep this appointment. It is important for you to make arrangements for either yearly or twice yearly check-ups thereafter. Current Hospital Diet Patient's current hospital diet: Regular OB Diet Discharge Diet Recommended Diet: Regular OB Diet Procedures Procedures Performed: Primary Low Transverse Caesarean Section; Delivery of a live female child at 1756 Pending Studies Studies pending at discharge: yes List of pending studies: Placenta pathology report Medical Emergencies . Who to Call and When: Medical Emergencies: If at any time you feel your situation is an emergency, please call [phone] immediately. . Non-Emergent Contact Non-Emergency issues call your: Registered Appraiser . . "Provider Documentation" section prepared by Jian Colmenares. . VTE Core Measure Inpt VTE Proph given/why not?: SCD's
[2016-12-26] MEDS ORDERED: OXYC-57 PO (07:51)
[2016-12-26] MEDS: FERROUS SULFATE 325 MG TAB PO SCH (07:56)
[2016-12-26] MEDS: PRENATAL VITAMIN TAB PO SCH (07:56)
[2016-12-26 08:13] VITALS: BP 125/83; PULSE 60; TEMP 37.6; O2SAT 98
[2016-12-26 14:05] VITALS: BP_DIAS 83; PULSE 60; TEMP 37.6
--- NOTE | 2016-12-29 08:43 | DISCHARGE SUMMARY ---
ADMITTING DIAGNOSES: 1. Complicated at 39+ weeks gestational age. 2. Elevated blood pressure in the third trimester of . 3. Known Ashley-Vanegas anomaly of the tricuspid valve. DISCHARGE DIAGNOSES: 1. Same. 2. Placental abruption. PROCEDURES PERFORMED: Primary low cervical transverse section. DISCHARGE MEDICATIONS: Percocet 5/325 1-2 p.o. q. 4-6 hours p.r.n. pain. ADMISSION HISTORY: The patient is a 26-year-old 2, para 0 with an EDC of 07 January at 38 weeks gestational age who presented to labor and delivery from the office for evaluation of elevated blood pressure and severe headache. The patient stated for the 2 days prior to admission she had had a severe headache into her head. She had a hard time taking a deep breath. She denies any chest pain or pain radiating down the arm. The patient does carry a diagnosis of Ashley anomalies of the heart. This is primarily involving the tricuspid valve. The patient was seen by her process inspector in [place] prior to and felt it was safe for the patient to get . She had also had a maternal medicine consult which cleared her for . The patient had a echocardiogram during this with no evidence of cardiac defects. Prior to the admission the patient had had a benign course. 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 Blood type O positive, antibody negative. She had a positive GBS urine screen at her initial urine culture. She is rubella immune, hepatitis B negative. She declined a quad screen. She had a normal 1 hour Glucola x2. ADMISSION PHYSICAL EXAMINATION: GENERAL: Gravid female, uncomfortable but in no acute distress. VITAL SIGNS: Blood pressure 155/90. NECK: Supple. HEART: Bradycardic with a grade 3/6 murmur along the left sternal border. LUNGS: Clear. ABDOMEN: Gravid, vertex, mild irregular contractions, positive heart tones, estimated weight of 7 pounds. PELVIC: Showed the cervix to be fingertip, thick, and high. EXTREMITIES: Showed no deep calf tenderness. NEUROLOGIC: DTRs were 2+ without clonus. ADMISSION LABORATORY VALUES: Showed an H&H of 12.9 and 36.6, platelet count of 187,000. The remainder of her preeclamptic labs were within normal limits. HOSPITAL COURSE: With the elevated blood pressure and +1 protein the patient was felt to be mildly preeclamptic. The headache was concerning for severe features despite her normal blood work and a decision was made to proceed with induction with magnesium prophylaxis. The patient received magnesium 4 grams IV and then 2 grams per hour. In order to start the induction cervical ripening with a Campos catheter was felt to be prudent. The patient was placed in dorsal lithotomy position and a cervical Campos was placed without difficulty. Following placement of the cervical Campos, the patient began to bleed heavily out of the Campos catheter itself. Campos catheter was removed and the bleeding continued. Bleeding was felt to be consistent with an abruption. During this time the heart rate tracing remained category 1. Blood pressure was stable. Because of the bleeding and preeclampsia remote from term decision was made to proceed with a primary section for placental abruption. The patient was taken to the operating room where she delivered a viable female infant with Apgars of 7 and 9 and a weight of 5 pounds 11 ounces. There was clear amniotic fluid, but there was a small clot noted on the edge of the placenta consistent with an abruption. She had normal appearing tubes and ovaries bilaterally. Postoperatively, the patient did well. The blood pressures returned to normal almost immediately and the protein cleared from her urine. As such, the magnesium was discontinued after 12 hours . By the 2nd postoperative day, the patient was ambulating without difficulty, tolerating a regular diet. She was discharged home with the routine discharge instructions and the prescriptions for the medications as listed as above. She will follow up in the office in 2 weeks' time for a postoperative check but as always she has been instructed to call with any questions, problems or difficulties.
== END 2016-12-26 14:05 | disposition home or self-care (01) | DRG 765 ==
LOC: C.LD 13:10 → C.OPB 13:10 → C.LD 15:24 → C.OPB 15:24 → C.MS4N 12-25 11:51 → EDSTATUS 01-07 13:15
PROVIDERS: ADMIT Obstetrics & Gynecology; ATTEND Obstetrics & Gynecology
PROC: 10D00Z1 Extraction of Products of Conception, Low, Open Approach (ICD-10-PCS; principal; 2016-12-24 17:27)
DX: O45.93 Premature separation of placenta, unspecified, third trimester (principal); O99.42 Diseases of the circulatory system complicating childbirth; Q22.5 Ebstein's anomaly; O99.824 Streptococcus B carrier state complicating childbirth; O14.14 Severe pre-eclampsia complicating childbirth; Z3A.38 38 weeks gestation of pregnancy; Z37.0 Single live birth

== ENCOUNTER → 2017-02-03 | Outpatient (CLI) | payer OTHER ==
[~2017-02-03] MED LIST changes: -MULT-506 PO; +OXYC-57 PO
== END | disposition home or self-care (01) ==
LOC: C.PAPS 13:58
PROVIDERS: ATTEND Obstetrics & Gynecology
DX: Z12.4 Encounter for screening for malignant neoplasm of cervix (principal)

== ENCOUNTER 2020-06-03 05:37 | Inpatient (IN) ==
--- NOTE | 2020-05-01 10:29 | PAT Medication Instructions ---
Medication Instructions Date of Service May 01, 2020 Home Medications prenat.vits,polly,tjz-koap-dzhyu 1 tab PO QAM aspirin 81 mg tablet,delayed release 81 mg PO QAM acetaminophen [Tylenol Extra Strength] 500 - 1,000 mg PO Q6H PRN ASK your prescriber and surgeon aspirin 81 mg tablet,delayed release 81 mg PO QAM DO NOT take the morning of surgery prenat.vits,polly,cni-tusl-asxgf 1 tab PO QAM Take morning of surgery With a small sip of water, OTHERWISE NOTHING TO EAT OR DRINK AFTER MIDNIGHT: acetaminophen [Tylenol Extra Strength] 500 - 1,000 mg PO Q6H PRN (okay to take up to 4 hours prior to surgery if needed) Other Notes If you have any questions please call us at [phone] or [phone] or [phone] or [phone]
--- NOTE | 2020-05-02 13:07 | Anesthesiology Consultation ---
Date of Service May 02, 2020 Assessment & Plan (1) Encounter for pre-operative examination: Chart Review Chart Review: Acceptable Risk for Surgery (pending anesthesia evaluation and preop Covid testing ) and Patient seen in Pre Admission Testing Will attempt to determine the OB anesthesiologist on 06/03/20 to discuss case with. - Pt presents for repeat . Pt's first ended in miscarriage. - Pt's second - pt had - emergent- done at [facility]- was having bleeding (placenta abruption)- taken to OR- had spinal and delivered. No issues with . - Third - pt delivered in [place] (secondary to fetus having cardiac abnormalities)- had epidural and - did have post hemorrhage. - No current issues (placental abruption): 12/24/16: SAB done at [facility] (no complications per post-anesthesia progress note) Per PAT appt on 05/02/20, patient denies any recent travel. No known Covid positive contacts or Covid related symptoms. 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 Will be working for three weeks prior to date. Plans to return to [place] on 06/02/19. Pt was educated to follow up with OB office on preop Covid testing. Pt educated that testing typically done 6-7 days prior to C- section. Pt was educated to celebrate holidays with household members only. Educated on importance of self quarantining, social distancing and wearing mask in public both for the patient and household contacts. Pt's is an ER doctor that works in [employer]. plans on working for the three weeks prior to the so will not be back to [place] until 06/02/19. Will attempt to determine if is able to be present for delivery. Pt follows routinely with cardiology. Last seen by cardiology ([facility]) 03/27/20= Patient had no problems with her first 3 pregnancies from a cardiovascular per spective. She has never had heart failure or tachyarrhythmia and has no diuretic requirement. For third patient was sent to [place] where they kept her in the ICU and repeatedly communicated the idea she was close to dying. Current echocardiogram shows a normal heart at 22 weeks gestation. Echocardiogram from 02/28/2020 reviewed. Patient has no heart failure, no arrhythmias, no cyanosis, and excellent functional capacity. Young people with Ebstein's anomaly typically have severe tricuspid regurgitation but with low filling pressures they can go on for years without difficulty. She has not reached any clinical indicators suggesting that she needs tricuspid valve repair. Her CARPREG II risk score is 0 indicating the chance of cardiovascular complications of this is a 4% or less; these risk would primarily be those of atrial dysrhythmias or right-sided congestion. It would be reasonable to monitor her heart rhythm during delivery, otherwise no special precautions need to be taken. She should be able to deliver or have a on the labor deck. There is no contraindication to vaginal delivery nor is a cardiac indication for section or mechanically assisted delivery. However the latter 2 options are indicated for obstetrical reasons there is no cardiac reason not to pursue them. She is perfectly safe to have an epidural anesthetic and she is not particular preload sensitive. She does not require antibiotic prophylaxis at the time of delivery. In short, it is recommended that she proceed with delivery in [place] with monitoring for cardiac arrhythmias and that her obstetrical med management should be guided by obstetrical noncardiac considerations. If there are further questions about this please do not hesitate to contact me at the hospital through the tip banding machine operator at [phone] or by calling my office at [phone]. Teaching & Discussion Pre-Anesthesia Teaching/Discussion Notes: Instructed NPO after midnight before surgery,except medications with 15 cc of water. Medication instructions provided according to the PAT guidelines. History Surgery Operation Date: 06/03/20 07:30 Proposed Procedures p Section in LD - Jamee Andersen MD Height/Weight Height: 5 ft 2 in Weight: 62.142 kg Allergies Allergy/AdvReac Type Severity Reaction Status Date / Time gluten Allergy Unknown GI ISSUES Verified 05/02/20 13:48 No Known Drug Allergies Allergy Verified 05/02/20 13:48 Medications Home Medications Medication Instructions Recorded Confirmed Last Taken prenat.vits,polly,oqt-jkpi-iznhr 1 tab PO QAM 10/27/19 05/02/20 Unknown aspirin 81 mg tablet,delayed 81 mg PO QAM 02/06/20 05/02/20 Unknown release acetaminophen [Tylenol Extra 500 - 1,000 mg PO Q6H PRN 04/24/20 05/02/20 Unknown Strength] Past Medical History Medical History Anomaly, Ebstein's, tricuspid valve + severe TR per 01/2020 echo- follows with Dr. 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 Elevated blood pressure affecting in third trimester, antepartum Heart murmur Hx of varicella Missed Exercise / Class Metabolic Activity II 4-5 Yardwork/Stairs/Walk up hill (one flight of stairs - no significant SOB or chest pain ) Past Family History Family History Grandmother (Paternal) Lung cancer Mother Family history of reaction to anesthesia PONV AFER BRAIN SURGERY Past Surgical History Surgical History H/O section H/O oral surgery WISDOM TEETH History of adenoidectomy History of facial surgery MAXILLARY History of tonsillectomy History of Past Anesthesia History No Hx of Anesthesia Complications and No Family Hx of Anesthesia Complications (with exception to mother- PONV ) History of PONV No Hx of PONV and No Hx of Motion Sickness Social History Smoking Status: Never smoker Do You Dip or Chew Tobacco: No Hx Alcohol Use: Yes (WHEN NOT ) alcohol intake frequency: holidays/special occasions only Hx Substance Use: No Review of Systems Only related SOB and reflux Patient denies chest pain, dyspnea on exertion, cough, wheezing, palpitations. No hx of seizures, stroke, MT, apnea/snoring. No hx of blood clots or blood transfusions Physical Exam Vital Signs VITALS BP 129/77 P 74 TEMP 98.0 SP02 98% RESP 16 Constitutional no acute distress ENMT Mouth: no TMJ clicking Thyromental Distance: > or= 3.5 Finger Breadths (3.5) Mallampati Class: II Denies loose or missing teeth Neck neck extension not limited Respiratory normal respiratory effort; no respiratory distress Auscultation: lungs clear to auscultation bilaterally; no wheezes Cardiovascular Rate/Rhythm: regular rate and regular rhythm Heart Sounds: + murmur (II-III/ systolic murmur noted more to left chest ) Vessels: no carotid bruit (presumed radiation from cardiac murmur ) Musculoskeletal Spine: no pain with cervical ROM Extremities: extremities normal to inspection Psychiatric Orientation: alert Testing Laboratory Results 05/02/20 13:32 Blood Type O Positive 05/02/20 13:32 Antibody Screen NEGATIVE 05/02/20 13:32 Echocardiogram Date: 02/28/20 EF: 56% LV Function: normal RWMA: + none Other Findings: no LVH Congenital: Sinus Solitus. Ebstein's anomaly. Mild LV septal flattening consistent with RV volume overload. Preserved longitudinal shortening. Severe RV dilation with preserved systolic function. Severe right atrial dilation, included the atrialized portion of the right ventricular inlet. Blunted hepatic venous flow pattern. Tricuspid valve: Ebstein's anomaly with 2.16cm displacement of septal leaflet and an elongated anterior leaflet. Severe tricuspid annular dilation. Severe TR, vena contracts 0.82cm, early peaking waveform. Since prior study of 09/17/2016- right ventricle and atrium more dilated.
[2020-05-02 15:05] LABS: Basophils # (auto) 0.03 K/uL (0-0.2); Basophils % (auto) 0.3 %; Eosinophils # (auto) 0.08 K/uL (0-0.5); Eosinophils % (auto) 0.7 %; Hematocrit (blood only) 36.5 % (37-47); Hemoglobin 12.4 g/dL (12.0-16.0); Immature Granulocytes # (auto) 0.03 K/uL (0.00-0.02); Immature Granulocytes % (auto) 0.3 %; Lymphocytes # (auto) 2.79 K/uL (1.2-3.4); Lymphocytes % (auto) 24.3 %; Mean Corpuscular Hemoglobin 31.2 pg (25-34); Mean Corpuscular Volume 91.7 fL (80-100); Mean Platelet Volume 10.6 fL (7.4-10.4); Monocytes # (auto) 0.57 K/uL (0.11-0.59); Neutrophils # (auto) 7.97 K/uL (1.4-6.5); Neutrophils % (auto) 69.4 %; Platelet Count 196 K/uL (130-400); RDW Coefficient of Variation 12.9 % (11.5-14.5); RDW Standard Deviation 43.1 fL (36.4-46.3); Red Blood Count 3.98 M/uL (4.2-5.4); White Blood Count 11.47 K/uL (4.8-10.8)
[2020-06-03] MEDS ORDERED: CITRIC ACID/SODIUM CITRATE 15 ML UDC PO SCH (06:00)
[2020-06-03] MEDS ORDERED: LACTATED RINGER'S 1,000 ML IV SCH ×2 (06:00→17:00)
[2020-06-03] MEDS ORDERED: ceFAZolin 2000MG 2,000 MG/15 ML SYR IV SCH (06:00)
[2020-06-03 06:24] LABS: Basophils # (auto) 0.02 K/uL (0-0.2); Basophils % (auto) 0.2 %; Eosinophils # (auto) 0.11 K/uL (0-0.5); Eosinophils % (auto) 1.2 %; Hematocrit (blood only) 34.4 % (37-47); Hemoglobin 11.6 g/dL (12.0-16.0); Immature Granulocytes # (auto) 0.04 K/uL (0.00-0.02); Immature Granulocytes % (auto) 0.4 %; Lymphocytes # (auto) 3.24 K/uL (1.2-3.4); Lymphocytes % (auto) 35.8 %; Mean Corpuscular Hemoglobin 30.8 pg (25-34); Mean Corpuscular Hgb Conc 33.7 g/dL (32-36); Mean Corpuscular Volume 91.2 fL (80-100); Mean Platelet Volume 10.9 fL (7.4-10.4); Monocytes # (auto) 0.62 K/uL (0.11-0.59); Monocytes % (auto) 6.8 %; Neutrophils # (auto) 5.03 K/uL (1.4-6.5); Neutrophils % (auto) 55.6 %; Platelet Count 148 K/uL (130-400); RDW Standard Deviation 43.1 fL (36.4-46.3); Red Blood Count 3.77 M/uL (4.2-5.4); White Blood Count 9.06 K/uL (4.8-10.8)
[2020-06-03] MEDS ORDERED: MoRPHine SULFATE PF 1 MG/ML 10 ML AMP/VIAL ONE (07:26)
[2020-06-03] MEDS ORDERED: diphenhydrAMINE 50 MG/ML VIAL IV PRN (07:31)
[2020-06-03] MEDS ORDERED: NALOXONE HCL 1 MG in SODIUM CHLORIDE 0.9% 1000ML 1,000 ML IV PRN (07:31)
[2020-06-03] MEDS ORDERED: ONDANSETRON INJ 2 MG/ML 2 ML VIAL IV PRN (07:31)
[2020-06-03] MEDS ORDERED: LACTATED RINGER'S 500 ML IV PRN (07:31)
[2020-06-03] MEDS ORDERED: ePHEDrine sulfate 50 MG/ML AMP IV PRN (07:31)
[2020-06-03] MEDS ORDERED: MoRPHine SULFATE PF 1 MG/ML 10 ML AMP/VIAL INT SPINAL ONE (07:31)
[2020-06-03] MEDS ORDERED: NALOXONE HCL 0.4 MG/1 ML VIAL/CARP IV PRN (07:31)
[2020-06-03] MEDS ORDERED: HYDROmorphone INJ 0.5 MG/0.5 ML SYR IV PRN (07:31)
[2020-06-03] MEDS ORDERED: NALOXONE HCL 0.08 MG in SYRINGE 1.8 ML IV PRN (07:31)
--- NOTE | 2020-06-03 07:31 | History & Physical Bridge Note ---
Date of Service June 03, 2020 History & Physical Bridge Note I have examined the patient, reviewed the History & Physical and in the interval since the performance of the History & Physical I have noted the following changes of clinical significance: no changes noted. Consent signed again this morning as paperwork was lost. FOB is here and tested neg for COVID yestrday.
[2020-06-03] MEDS ORDERED: fentaNYL citrate 100 MCG/2 ML VIAL ONE (07:36)
[2020-06-03] MEDS ORDERED: NO NARCOTICS OR SEDATIVES SCH (07:45)
[2020-06-03] MEDS ORDERED: SODIUM CHLORIDE 0.9% 1000ML 1,000 ML IV SCH (07:45)
[2020-06-03] MEDS ORDERED: DC INTRASPINAL MORPHINE SCH (07:45)
[2020-06-03] MEDS ORDERED: GLYCOPYRROLATE 0.2 MG/ML VIAL ONE (08:01)
[2020-06-03] MEDS ORDERED: ePHEDrine sulfate 50 MG/ML SYR ONE (08:01)
[2020-06-03] MEDS ORDERED: PHENYLEPHRINE 100MCG/ML 5ML SYR ONE (08:02)
[2020-06-03] MEDS ORDERED: ONDANSETRON INJ 2 MG/ML 2 ML VIAL ONE (08:13)
[2020-06-03] MEDS ORDERED: DIPHTHERIA/TETANUS/PERTUSSIS 0.5 ML SYR/VIAL IM ONE (08:26)
[2020-06-03] MEDS ORDERED: BENZOCAINE 20% AER SPR 82.5 GM CAN EXT PRN (08:26)
[2020-06-03] MEDS ORDERED: MAGNESIUM HYDROXIDE SUSP 30 ML UDC PO PRN (08:26)
[2020-06-03] MEDS ORDERED: SUPERCREAM 0.870% 15 GM JAR EXT PRN (08:26)
[2020-06-03] MEDS ORDERED: HYDROCORTISONE ACETATE 25 MG SUPP PR PRN (08:26)
[2020-06-03] MEDS ORDERED: SENNA 8.6 MG TAB PO PRN (08:26)
[2020-06-03] MEDS ORDERED: OXYTOCIN 20 UNITS in LACTATED RINGER'S 1,000 ML IV SCH (08:30)
--- NOTE | 2020-06-03 08:40 | Operative Report ---
PG Post Operative Report Pre & Post Diagnosis Operation Date: 06/03/20 07:30 Pre-Op Diagnosis: Intrauterine , desires repeat cesearan section Post-Op Diagnosis: Intrauterine , desires repeat cesearan section. Living male child at 0811 I identified the patient and participated in the time-out.: Yes Procedure Operation Date: 06/03/20 07:30 Actual Procedures p Repeat low transverse section at 0811 for living male child(Bilateral) - Jamee Andersen MD Surgeon Jamee Andersen MD Product Safety Tester Cheryl Estimated Blood Loss 600 Findings Consistent with Post-Op Diagnosis Specimens Placenta for hold, cord blood Anesthesia Type Spinal Complications none Disposition Accompanied Patient To Recovery: Yes Disposition: L&D Description of Procedure The patient was brought to the operating room and placed on the table in the supine position with a leftward tilt, then prepped and draped in standard sterile fashion. A hard time out was taken prior to proceeding. A pfannensteil incision was created sharply and carried down to the fascia using bovie electrocautery. The fascia was nicked and then extended using luong scissors. The edges of the fascia were grasped with Sheryl clamps and elevated, then sharply and bluntly dissected off the underlying rectus. The midline of the rectus was identified and bluntly . The peritoneum was bluntly entered, and this entry was extended using pressure from the surgeon's hands. The bladder retractor was placed and the lower uterine segment was examined and found to be well developed. A bladder flap was created and the retractor was replaced behind this flap to protect the bladder. A transverse lower uterine incision was then created, with final entry to the uterine cavity made in a blunt manner with the surgeon's finger. Clear amniotic fluid was encountered. The head was elevated to the incision and delivered using mild fundal pressure. The cord was doubly clamped and cut, then the vigorous was gage en to the warmer for ship's master care. The placenta was manually extracted, then the uterus was gently exteriorized from the maternal abdomen. The cavity was cleared of clot and debris using a dry lap sponge. The angles of the incision were identified with allis clamps, and the hysterotomy was then repaired in running locked fashion using 0-vicryl suture, followed by a second imbricating layer. The tubes and ovaries were examined and found to be normal bilaterally. The posterior gutter was irrigated and cleared of clot and debris. The uterus was then gently re-internalized to the abdomen. Lateral gutters were cleared of clot and debris using a damp lap sponge, and a final exam of the hysterotomy revealed good hemostasis. The rectus muscles were allowed to reapproximate naturally. The angle of the fascia was grasped with a Sheyrl clamp and the fascia was then repaired in running non-locked fashion with 1- vicryl suture. At the completion of repair, the fascia was examined and found to be free of any defect. The subcutaneous tissue was copiously irrigated and then reapproximated using 3-0 chromic. The skin was then closed using 4-0 monocryl in a running subcuticular fashion and a dermabond dressing was applied. The varghese was noted to be draining clear yellow urine as the patient was transferred back to her recovery room. I attest to the content of the Intraoperative Record and any orders documented therein. Any exceptions are noted below.
[2020-06-03] MEDS ORDERED: ACETAMINOPHEN 1,000 MG/100 ML VIAL IV STA (08:50)
[2020-06-03] MEDS ORDERED: ACETAMINOPHEN 1,000 MG/100 ML VIAL IV SCH (08:50)
[2020-06-03] MEDS: KETOROLAC 30 MG/ML VIAL IV PRN ×3 (09:22→22:02)
--- NOTE | 2020-06-03 11:30 | Anesthesiology Progress Note ---
Date of Service June 03, 2020 Anesthesia Post Procedure Vital Signs Vital Signs: Temp Pulse Resp BP Pulse Ox 06/03/20 11:15 69 99 06/03/20 11:10 81 99 06/03/20 11:05 60 99 06/03/20 11:00 59 L 98 06/03/20 10:55 61 99 06/03/20 10:50 57 L 100 06/03/20 10:45 53 L 18 115/56 L 100 06/03/20 10:44 53 L 115/56 L 06/03/20 10:40 60 98 06/03/20 10:35 60 98 06/03/20 10:30 72 98 06/03/20 10:25 57 L 98 06/03/20 10:20 68 117/60 100 06/03/20 10:15 63 18 117/60 99 06/03/20 10:10 58 L 98 06/03/20 10:05 57 L 98 06/03/20 10:00 58 L 97 06/03/20 09:55 66 97 06/03/20 09:50 59 L 97 06/03/20 09:47 67 114/64 06/03/20 09:45 36.4 C L 68 18 114/64 97 06/03/20 09:40 61 97 06/03/20 09:35 58 L 18 122/58 L 96 06/03/20 09:33 68 92 06/03/20 09:30 56 L 99 06/03/20 09:25 59 L 18 116/62 98 06/03/20 09:20 64 99 06/03/20 09:15 64 18 122/61 97 06/03/20 09:10 66 124/60 98 06/03/20 09:05 64 18 124/60 98 06/03/20 09:03 71 138/73 06/03/20 09:00 89 92 06/03/20 08:55 86 16 161/102 H 100 06/03/20 08:50 94 H 99 06/03/20 08:45 36.4 C L 75 16 135/79 99 06/03/20 07:35 69 99 06/03/20 07:30 69 99 06/03/20 07:25 74 99 06/03/20 07:18 36.5 C 75 18 125/72 06/03/20 07:10 36.5 C 75 16 125/72 06/03/20 07:09 75 125/72 06/03/20 05:52 37.1 C 18 Pain Intensity Left Neck: Pain Intensity: 1 Medial Head: Pain Intensity: 1 Lower Medial Abdomen: Pain Intensity: 1 Transfer of Care Handoff Completed per policy Notes Mental Status: alert / awake / arousable Patient Amnestic to Procedure: Yes Nausea / Vomiting: adequately controlled Pain: adequately controlled Airway Patency, RR, SpO2: stable & adequate BP & HR: stable & adequate Hydration State: stable & adequate Neuraxial Anesthesia: was administered and sensory block is resolving Anesthetic Complications: no major complications apparent and Pt Satisfied with anesthetic care Notes: The patient is awake and comfortable. Her vital signs are stable.
[2020-06-03] MEDS: SIMETHICONE 80 MG CHEW PO SCH ×3 (13:25→20:01)
[2020-06-03] MEDS: DOCUSATE SODIUM 100 MG CAP PO SCH (20:02)
[2020-06-04] MEDS ORDERED: diphenhydrAMINE Capsule 25 MG CAP PO PRN (01:31)
[2020-06-04] MEDS ORDERED: diphenhydrAMINE 50 MG/ML VIAL IV PRN (01:31)
[2020-06-04] MEDS ORDERED: KETOROLAC 30 MG/ML VIAL IV PRN (01:31)
[2020-06-04] MEDS ORDERED: PROMETHAZINE HCL 25 MG in SODIUM CHLORIDE 0.9% 50 ML IV PRN (01:31)
[2020-06-04] MEDS ORDERED: ONDANSETRON INJ 2 MG/ML 2 ML VIAL IV PRN (01:31)
[2020-06-04] MEDS ORDERED: oxyCODONE/ACETAMINOPHEN 5mg/325mg TAB PO PRN (01:31)
[2020-06-04] MEDS: ACETAMINOPHEN 325 MG TAB PO PRN ×4 (02:38→19:43)
[2020-06-04] MEDS: IBUPROFEN 600 MG TAB PO PRN ×4 (04:27→21:30)
--- NOTE | 2020-06-04 05:34 | Obstetrical Progress Note ---
Date of Service June 04, 2020 Assessment & Plan (1) : S/p Elective Repeat LTCS Day 1 - Feels well today. Eating well, voiding well, ambulating well. - Pain well-controlled with ibuprofen 600mg Q4H PRN. - Vital signs reviewed and WNL. - Hemoglobin reviewed. 11.6 --> 10.0 (today). - Blood Type: O+, antibody negative, GBS positive (s/p intrapartum Ancef), Rubella Immune, COVID-19 negative - Continue routine post-op care: encourage ambulation, monitor and control pain with Motrin PRN, continue regular OB diet, monitor lochia - Encourage breast feeding. - After discharge, will have 6-wk follow-up with Dr. Andersen Admission and Anticipated Discharge Date Admission Date: June 03, 2020 Supervising Physician Co-Signing Physician Notes Resident Physician Supervision Note: I interviewed and examined the patient. Discussed with Dr. Penaloza and agree with findings and plan as documented in the note. Any exceptions or clarifications are listed here: Patient doing well this morning. Campos out, already voiding. Tolerating regular diet. She had a severe headache yesterday just at the beginning of her r/t acute changes in BP; this resolved rapidly, has not recurred, and patient is now sitting upright, , smiling and talkative during our visit without any apparent neurological changes. Blood pressure is normal today and she is without s/sx of preeclampsia. I do note both maternal cardiac condition and the history of preeclampsia in a prior , as well as PP hemorrhage after the last ; these will be signed out to the oncoming coverage, and she will be monitored closely here in the period. Documented By: Jamee Andersen MD, FACOG Subjective HPI Lolis Garcia is a 29 y/o female who is POD #1 following elective repeat delivery at 39 weeks. She reports feeling well overall this morning. abdominal cramping and minimal pain well managed on analgesics. Voiding well. Tolerating full liquid meals overnight without difficulty; will advance to full diet this AM. Patient has been able to ambulate some. passing gas and no bowel movement. Has persistent lochia with some improvement this morning. Currently . Review of Systems Review of Systems: ROS Denies fever or chills. Denies shortness of breath or cough. Denies chest pain. Denies breast pain. Denies dysuria. Denies leg pain or leg swelling. Denies headache or changes in vision. Physical Exam Physical Exam: PE General: Alert, oriented. No acute distress. Cardiac: Regular rate and rhythm. No murmurs. Respiratory: Clear to auscultation bilaterally a/p, no wheezes/rales/rhonchi. No increased work of breathing. Symmetrical chest rise. No respiratory distress. Abdomen: Soft, nontender, nondistended. Bowel sounds present. Uterus: Uterine fundus firm, palpable 1 cm below umbilicus. Surgical scar clean and healing well. Lower Extremities: No lower extremity edema or swelling. No deep calf pain. Megan's negative bilaterally. Results & Data ([facility]) Vital Signs (Past 12 Hours) Vital Signs Temp Pulse Pulse Resp BP Pulse Ox Pulse Ox 06/04/20 03:00 36.4 C L 56 L 18 106/68 98 06/04/20 01:40 18 97 06/04/20 00:40 16 96 06/04/20 00:38 98 06/03/20 23:40 18 98 06/03/20 23:15 36.2 C L 76 76 16 105/65 98 06/03/20 22:40 18 97 06/03/20 21:40 16 98 06/03/20 20:40 16 98 06/03/20 19:40 16 98 06/03/20 19:28 36.5 C 54 L 18 104/62 96 06/03/20 18:40 18 96 06/03/20 17:40 16 97 Resident Activity Tracking Resident Involvement: Resident Care Provided Care Provided: Adult Hospital Medicine
[2020-06-04 06:43] LABS: Basophils # (auto) 0.01 K/uL (0-0.2); Basophils % (auto) 0.1 %; Eosinophils # (auto) 0.06 K/uL (0-0.5); Eosinophils % (auto) 0.8 %; Hematocrit (blood only) 29.5 % (37-47); Immature Granulocytes # (auto) 0.01 K/uL (0.00-0.02); Immature Granulocytes % (auto) 0.1 %; Lymphocytes # (auto) 1.88 K/uL (1.2-3.4); Lymphocytes % (auto) 26.5 %; Mean Corpuscular Hemoglobin 31.2 pg (25-34); Mean Corpuscular Hgb Conc 33.9 g/dL (32-36); Mean Corpuscular Volume 91.9 fL (80-100); Mean Platelet Volume 10.5 fL (7.4-10.4); Monocytes # (auto) 0.39 K/uL (0.11-0.59); Monocytes % (auto) 5.5 %; Neutrophils # (auto) 4.75 K/uL (1.4-6.5); Platelet Count 118 K/uL (130-400); RDW Standard Deviation 43.7 fL (36.4-46.3); Red Blood Count 3.21 M/uL (4.2-5.4)
[2020-06-04] MEDS: FERROUS SULFATE 325 MG TAB PO SCH (08:35)
[2020-06-04] MEDS: DOCUSATE SODIUM 100 MG CAP PO SCH ×2 (08:35→19:44)
[2020-06-04] MEDS: PRENATAL VITAMIN 1 TAB PO SCH (08:35)
[2020-06-04] MEDS: SIMETHICONE 80 MG CHEW PO SCH ×3 (08:35→19:43)
[2020-06-04] MEDS ORDERED: bisacodyL 5 MG TABEC PO SCH (20:00)
[2020-06-05] MEDS: ACETAMINOPHEN 325 MG TAB PO PRN ×3 (00:22→12:15)
[2020-06-05] MEDS: IBUPROFEN 600 MG TAB PO PRN ×3 (03:33→13:58)
--- NOTE | 2020-06-05 05:58 | Obstetrical Progress Note ---
Date of Service June 05, 2020 Assessment & Plan (1) : S/p Elective Repeat LTCS Day 2 - Feels well today. Eating well, voiding well, ambulating well. - Pain well-controlled with ibuprofen 600mg Q4H PRN. - Vital signs reviewed and WNL. - Hemoglobin reviewed. 11.6 --> 10.0 --> 10.3 (today). - Blood Type: O+, antibody negative, GBS positive (s/p intrapartum Ancef), Rubella Immune, COVID-19 negative - Continue routine post-op care: encourage ambulation, monitor and control pain with Motrin PRN, continue regular OB diet, monitor lochia - Encourage breast feeding. - Pt counselled on discharge instructions - After discharge, will have 6-wk follow-up with Dr. Andersen Admission and Anticipated Discharge Date Admission Date: June 03, 2020 Supervising Physician Co-Signing Physician Notes Resident Physician Supervision Note: I was present with [Name of resident] during the history and exam. I discussed the case with the resident and agree with the findings and plan as documented in the note. Any exceptions or clarifications are listed here: [None] Documented By: Neelima Arriaza MD, FACOG Subjective HPI Lolis Garcia is a 29 y/o female who is POD #2 following elective repeat delivery at 39 weeks. She reports feeling well overall this morning. abdominal cramping and minimal-moderate pain well managed on analgesics. Voiding well. Tolerating meals overnight without difficulty. Patient has been able to ambulate some. passing gas and had bowel movement. Has persistent lochia with some improvement this morning. Currently . Review of Systems Review of Systems: ROS Denies fever or chills. Denies shortness of breath or cough. Denies chest pain. Denies breast pain. Denies dysuria. Denies leg pain or leg swelling. Denies headache or changes in vision. Physical Exam Physical Exam: PE General: Alert, oriented. No acute distress. Cardiac: Regular rate and rhythm. No murmurs. Respiratory: Clear to auscultation bilaterally a/p, no wheezes/rales/rhonchi. No increased work of breathing. Symmetrical chest rise. No respiratory distress. Abdomen: Soft, nontender, nondistended. Bowel sounds present. Uterus: Uterine fundus firm, palpable 1 cm below umbilicus. Surgical scar clean and healing well. Lower Extremities: No lower extremity edema or swelling. No deep calf pain. Megan's negative bilaterally. Results & Data ([facility]) Vital Signs (Past 12 Hours) Vital Signs Temp Pulse Resp BP Pulse Ox 06/05/20 00:20 36.3 C L 65 16 116/70 97 06/04/20 19:30 36.3 C L 65 16 120/81 98 Resident Activity Tracking Resident Involvement: Resident Care Provided Care Provided: Adult [facility]
[2020-06-05 06:13] LABS: Hematocrit (blood only) 30.8 % (37-47); Hemoglobin 10.3 g/dL (12.0-16.0)
[2020-06-05] MEDS ORDERED: bisacodyL 10 MG SUPP PR PRN (08:26)
[2020-06-05] MEDS: PRENATAL VITAMIN 1 TAB PO SCH (08:29)
[2020-06-05] MEDS: DOCUSATE SODIUM 100 MG CAP PO SCH (08:30)
[2020-06-05] MEDS: SIMETHICONE 80 MG CHEW PO SCH ×2 (08:30→12:15)
[2020-06-05] MEDS: FERROUS SULFATE 325 MG TAB PO SCH (08:30)
--- NOTE | 2020-06-06 11:05 | Discharge Summary ---
Date of Service June 06, 2020 Discharge Data Procedures Performed Operation Date: 06/03/20 07:30 Actual Procedures p Repeat section at 0811 for living male child(Bilateral) - Jamee Andersen MD Hospital Course (1) Maternal congenital cardiac anomaly affecting , antepartum: Patient admitted for planned repeat section, due to maternal ebstein's anomaly and history of cesearean. She had a prior successful , but because of limitations in our ability to provide the recommended cardiac monitoring for a second attempt, as well as issues with hemorrhage after her , the patient elected to have a for this delivery. This delivery was uncomplicated; see op report for details. She had an uneventful postop recovery and was discharged home with #20 percocet tablets and usual follow up plans. (2) Hx successful (vaginal after ), currently : Coding Level of Care Code None Diagnoses Maternal congenital cardiac anomaly affecting , antepartum O99.419; Q24.9 Hx successful (vaginal after ), currently O34.219
== END 2020-06-05 16:40 | disposition home or self-care (01) | DRG 788 ==
LOC: 4S1 05:37 → 4S2 11:40 → EDSTATUS 06-07 07:30